=== PATIENT | male | born 1950 | race Caucasian/White ===

== ENCOUNTER 2016-08-27 08:20 | Observation (INO) | payer MEDICARE ==
[~2016-08-27] VITALS: Ht 185.4 cm; Wt 93.5 kg
[2016-08-27] VITALS (11 sets, daily range): BP systolic 90–115; BP diastolic 71–91; PULSE 58–130; RESP 16–19; TEMP 96.2–97.7; O2SAT 93–96
[~2016-08-27 08:20] MED LIST: CIAL5TAB PO; CO Q PO; COMMODE 3-IN-11 MIS; CPMMACHINE; GALA8TAB PO; HYDR-3580 PO; MAGN500T4 PO; MSM1500T PO; MULT1TAB84 PO; OMEG100037 PO; PRIL20CA9 PO; ROLLER WALKER1 MI1; VITATAB56 PO; XARE20TA PO; ZOVI400T PO
[2016-08-27] MEDS ORDERED: SODIUM CHLORIDE 0.9% FLUSH 10 ML FLUSH IVF PRN (08:45)
[2016-08-27] MEDS ORDERED: ASPIRIN 81 MG CHEW TAB CHEW ONE (08:45)
--- NOTE | 2016-08-27 08:53 | PD ---
HPI Chief Complaint: Cardiac Complaint Time Seen by Provider: 08:37 Travel History International Travel<30 days: No Contact w/Intl Traveler<30days: No Traveled to known affect area: No History of Present Illness HPI Patient is a 66-year-old male presents emergency Department with complaints of rapid heartbeat and shortness of breath. Patient states she has a history of heart attack some years ago followed by Dr. Monique but missed his appointment this winter secondary to a scheduling error. Patient does endorse a recent history of traveling from [place] back to [place]. States she's not had a stress test or cardiac catheterization some time. He states that he could hear his heartbeat in his neck and it was going somewhat fast. He went to call his logistics specialist and was unable to get through this morning, he then went to the local fire department and was told to follow-up with his primary care physician. Still not satisfied he came here by private vehicle for further evaluation. Of notes networking technician to the patient's vital signs on triage and had a heartbeat and axis of 200, patient states he was sweating and feeling very short of breath when he first got here by the time he was roomed in the examination room he states his symptoms are actually getting better. PFSH Past Medical History Heart Rhythm Problems: No Cancer: No Cardiac Catheterization: Yes Cardiovascular Problems: Yes (HX AK) High Cholesterol: No Congestive Heart Failure: No Coronary Artery Disease: Yes Diabetes: No Endocrine: No Gastrointestinal Disorders: Yes (gerd) Genitourinary: Yes Hepatitis: No Hiatal Hernia: No Heparin Induced Thrombocytopen: No Hypertension: No Immune Disorder: No Medical other: Yes (GOUT IN THE PAST) Musculoskeletal: Yes (arthritis, previous back injury, ) Neurologic: Yes (neuropathy to both feet) Psychiatric: No Reproductive: No Respiratory: No Myocardial Infarction: Yes (STENT PLACED 5 YEARS AGO) Thyroid Disease: No Influenza Vaccination: Yes Past Surgical History AICD: No Body Medical Devices: 1 STENT Cardiac Surgery: Yes (1 STENT) Coronary Artery Bypass Graft: No Coronary Stent: Yes (STENT AFTER ANGIOPLASTY 5 YEARS AGO) Joint Replacement: No Pacemaker: No Other Surgery: Yes (LEFT ELBOW REPAIR, RHINOPLASTY) Social History Alcohol Use: Yes (BEERS ON THE WEEKEND) Tobacco Use: No Substance Use: No Allergies-Medications (Allergen,Severity, Reaction): Coded Allergies: HMG-CoA Reductase Inhibitors (Unverified Allergy, Severe, Confusion, ) memory loss Reported Meds & Prescriptions Reported Meds & Active Scripts Active Reported Hydrea (Hydroxyurea) 500 Mg Cap 500 Mg PO DAILY Co Q-10 (Coenzyme Q10 (Ubidecarenone)) 400 Mg Cap 1 Tab-Cap PO DAILY Galantamine (Galantamine Hydrobromide) 8 Mg Tab 8 Mg PO DAILY Zovirax (Acyclovir) 400 Mg Tab 400 Mg PO DAILY Multivitamin Adults (Multiple Vitamins W/ Minerals) 1 Tab 1 Tab PO DAILY Msm (Methylsulfonylmethane) 1,500 Mg Tab 1,500 Mg PO DAILY Magnesium 500 Mg Tab 1,000 Mg PO DAILY Vitamin D-400 (Cholecalciferol) 400 Unit Tab 2,000 Units PO DAILY Review of Systems Except as stated in HPI: all other systems reviewed are Neg Physical Exam Narrative GENERAL: Well-developed well-nourished no apparent distress SKIN: Focused skin assessment warm/dry. HEAD: Atraumatic. Normocephalic. EYES: Pupils equal and round. No scleral icterus. No injection or drainage. ENT: No nasal bleeding or discharge. Mucous membranes pink and moist. NECK: Trachea midline. No JVD. CARDIOVASCULAR: Agonal rhythm with tachycardia. No murmur appreciated. 2+ bilateral equal pulses in all 4 extremity's. RESPIRATORY: No accessory muscle use. Clear to auscultation. Breath sounds equal bilaterally. GASTROINTESTINAL: Abdomen soft, non-tender, nondistended. Hepatic and splenic margins not palpable. MUSCULOSKELETAL: No obvious deformities. No clubbing. No cyanosis. No edema. NEUROLOGICAL: Awake and alert. No obvious cranial nerve deficits. Motor grossly within normal limits. Normal speech. PSYCHIATRIC: Appropriate mood and affect; insight and judgment normal. Data Data Last Documented VS Vital Signs Date Time Temp Pulse Resp B/P Pulse Ox O2 Delivery O2 Flow Rate FiO2 08/27/16 10:22 130 16 96/72 96 Nasal Cannula 2 08/27/16 08:25 97.7 Orders Electrocardiogram (08/27/16 08:37) Ckmb (Isoenzyme) Profile (08/27/16 08:37) Complete Blood Count With Diff (08/27/16 08:37) Comprehensive Metabolic Panel (08/27/16 08:37) D-Dimer (08/27/16 08:37) Magnesium (Mg) (08/27/16 08:37) Prothrombin Time / Inr (Pt) (08/27/16 08:37) Act Partial Throm Time (Ptt) (08/27/16 08:37) Troponin I (08/27/16 08:37) Chest, Single Ap (08/27/16 08:37) Ecg Monitoring (08/27/16 08:37) Iv Access Insert/Monitor (08/27/16 08:37) Oximetry (08/27/16 08:37) Oxygen Administration (08/27/16 08:37) Sodium Chloride 0.9% Flush (Ns Flush) (08/27/16 08:45) Aspirin Chew (Aspirin Chew) (08/27/16 08:45) Diltiazem Inj (Cardizem Inj) (08/27/16 09:00) Sodium Chlorid 0.9% 500 Ml Inj (Ns 500 M (08/27/16 09:15) Sodium Chlorid 0.9% 500 Ml Inj (Ns 500 M (08/27/16 10:15) Metoprolol Tartrate Inj (Lopressor Inj) (08/27/16 10:30) Electrocardiogram (08/27/16 ) Troponin I (08/27/16 10:40) Admit Order (Ed Use Only) (08/27/16 ) Labs Laboratory Tests Test 08/27/16 08:40 White Blood Count 10.9 TH/MM3 Red Blood Count 6.12 MIL/MM3 Hemoglobin 18.1 GM/DL Hematocrit 56.8 % Mean Corpuscular Volume 92.8 FL Mean Corpuscular Hemoglobin 29.6 PG Mean Corpuscular Hemoglobin 32.0 % Concent Red Cell Distribution Width 15.2 % Platelet Count 559 TH/MM3 Mean Platelet Volume 8.7 FL Neutrophils (%) (Auto) 72.8 % Lymphocytes (%) (Auto) 15.6 % Monocytes (%) (Auto) 8.0 % Eosinophils (%) (Auto) 2.0 % Basophils (%) (Auto) 1.6 % Neutrophils # (Auto) 7.9 TH/MM3 Lymphocytes # (Auto) 1.7 TH/MM3 Monocytes # (Auto) 0.9 TH/MM3 Eosinophils # (Auto) 0.2 TH/MM3 Basophils # (Auto) 0.2 TH/MM3 CBC Comment DIFF FINAL Differential Comment Prothrombin Time 11.6 SEC Prothromb Time International 1.0 RATIO Ratio Activated Partial 29.7 SEC Thromboplast Time D-Dimer Quantitative (PE/DVT) 0.34 MG/L FEU Sodium Level 146 MEQ/L Potassium Level 4.2 MEQ/L Chloride Level 110 MEQ/L Carbon Dioxide Level 30.6 MEQ/L Anion Gap 5 MEQ/L Blood Urea Nitrogen 23 MG/DL Creatinine 1.10 MG/DL Estimat Glomerular Filtration 67 ML/MIN Rate Random Glucose 115 MG/DL Calcium Level 8.9 MG/DL Magnesium Level 2.2 MG/DL Total Bilirubin 0.6 MG/DL Aspartate Amino Transf 31 U/L (AST/SGOT) Alanine Aminotransferase 48 U/L (ALT/SGPT) Alkaline Phosphatase 173 U/L Total Creatine Kinase 80 U/L Troponin I LESS THAN 0.02 NG/ML Total Protein 7.4 GM/DL Albumin 3.9 GM/DL MDM Medical Decision Making Medical Screen Exam Complete: Yes Emergency Medical Condition: Yes Interpretation(s) EKG shows 2-1 atrial flutter, overall rate of 120 bpm, normal axis and normal R- wave progression. No obvious ST segment changes. This an abnormal EKG. Repeat EKG shows atrial fibrillation at a rate of 80-90, normal axis normal R- wave progression, no obvious ST segment changes. This is an abnormal EKG. Differential Diagnosis New-onset atrial fibrillation, new onset atrial flutter, CHF, ACS, AK. Narrative Course Patient 66-year-old male presents emergency Department with atrial flutter 2-1 and a rate of 120s to 130s. Blood work does show some hemoconcentration versus possible polycythemia, he was given a total of a liter fluid which did not significantly correct his heart rate. He was also given diltiazem on arrival which did not alter his heart rate. Patient was then given a dose of metoprolol which slowed his heart rate significantly but the patient's rhythm changed from atrial flutter to atrial fibrillation. EKG and troponin are being repeated at this time. He is now asymptomatic, secondary complaint of some chest pain the left side of his chest. Recommended to him for observation status for chest pain and new onset atrial fibrillation and he is agreeable. Patient discussed with Dr. Ortiz who is agreeable. Diagnosis Primary Impression: Atrial fibrillation and flutter Additional Impression: Chest pain Admitting Information Admitting Physician Requests: Observation Condition: Stable Agustín Narayanan MD Aug 27, 2016 08:53
[2016-08-27 08:56] LABS: CHLORIDE 110 MEQ/L (98-107); POTASSIUM 4.2 MEQ/L (3.5-5.1); SODIUM (NA) 146 MEQ/L (136-145)
[2016-08-27 08:57] LABS: AUTOMATED NEUTROPHIL # 7.9 TH/MM3 (1.8-7.7); BASOPHIL # 0.2 TH/MM3 (0-0.2); BASOPHIL % 1.6 % (0.0-2.0); EOSINOPHIL # 0.2 TH/MM3 (0-0.4); HEMATOCRIT 56.8 % (39.0-51.0); LYMPH % 15.6 % (9.0-44.0); LYMPHOCYTE # 1.7 TH/MM3 (1.0-4.8); MEAN CELL VOLUME 92.8 FL (80.0-100.0); MEAN CORPUSCULAR HEMOGLOBIN 29.6 PG (27.0-34.0); NEUT % 72.8 % (16.0-70.0); PLATELET COUNT 559 TH/MM3 (150-450); RED BLOOD COUNT 6.12 MIL/MM3 (4.50-5.90); RED CELL DISTRIBUTION WIDTH 15.2 % (11.6-17.2); WHITE BLOOD COUNT 10.9 TH/MM3 (4.0-11.0)
[2016-08-27 08:59] LABS: HEMO FLAGS DIFF FINAL
[2016-08-27 09:00] LABS: ANION GAP 5 MEQ/L (5-15); BICARBONATE 30.6 MEQ/L (21.0-32.0); BLOOD UREA NITROGEN 23 MG/DL (7-18); MAGNESIUM 2.2 MG/DL (1.5-2.5)
[2016-08-27] MEDS ORDERED: DILTIAZEM HCL 25 MG/5 ML VIAL IV PUSH ONE (09:00)
[2016-08-27 09:03] LABS: ALT (GPT) 48 U/L (12-78); AST (GOT) 31 U/L (15-37); GLOMERULAR FILTRATION RATE 67 ML/MIN (>89)
[2016-08-27 09:04] LABS: APTT (PATIENT) 29.7 SEC (24.3-30.1); PROTHROMBIN TIME - PATIENT 11.6 SEC (9.8-11.6); TOTAL BILIRUBIN ADULT 0.6 MG/DL (0.2-1.0)
[2016-08-27 09:05] LABS: ALKALINE PHOSPHATASE 173 U/L (45-117)
[2016-08-27 09:06] LABS: CREATINE KINASE 80 U/L (39-308)
[2016-08-27] MEDS ORDERED: SODIUM CHLORID 0.9% 500 ML INJ 500 ML IV ONE ×2 (09:15→10:15)
[2016-08-27] MEDS ORDERED: HYDR500C PO (09:23)
[2016-08-27] MEDS ORDERED: COEN400C2 PO (09:23)
--- NOTE | 2016-08-27 09:30 | RADRPT ---
EXAM DATE/TIME: 08/27/2016 09:04 [facility] COMPARISON: No previous studies available for comparison. INDICATIONS : Chest Pain Increased heart rate MEDICAL HISTORY : None. SURGICAL HISTORY : None. ENCOUNTER: Initial ACUITY: 1 day PAIN SCORE: 5/10 LOCATION: Bilateral chest FINDINGS: Portable AP view of the chest demonstrates a normal-sized cardiac silhouette. No effusion, consolidat ion, or pneumothorax is visualized. The bones and soft tissues demonstrate no acute abnormality. Ther e is mild atelectasis at the lung bases and there is an old healed left clavicle fracture. CONCLUSION: No acute cardiopulmonary abnormality is identified. Garret Malin MD on August 27, 2016 at 9:27 Board Certified Radiologist. This report was verified electronically.
[2016-08-27] MEDS ORDERED: METOPROLOL TARTRATE 5 MG/5 ML VIAL IV PUSH ONE (10:30)
[2016-08-27] MEDS: METOPROLOL TARTRATE 50 MG TAB PO SCH ×2 (11:34→21:00)
[2016-08-27] MEDS ORDERED: GALA8TAB PO (13:23)
--- NOTE | 2016-08-27 13:47 | MH ---
cc: ALEXIA RANGEL M.D. DATE OF ADMISSION: 08/27/2016 ADMISSION DIAGNOSIS 1. Atrial fibrillation with rapid ventricular response that is new onset. 2. Coronary artery disease with prior PR and prior PTCA with stent in 2002. 3. Thrombocytosis. 4. History of DVT left lower leg. 5. Gastroesophageal reflux disease. 6. Osteoarthritis. 7. History of mild memory problems. 8. Lumbar degenerative disc disease. 9. Osteoarthritis. PERTINENT HISTORY This is a pleasant 66-year-old white male that earlier this morning noticed that he could hear his heart beat in his ear and it seemed to be very erratic and fast. He then would check his pulse and at times it would seen fast and at other times slow. He went to a fire station and they apparently did a rhythm strip on him and said his heart rate was around 120 and it was irregular; apparently mentioned that he was in atrial fibrillation and he was told to call his button breaker operator. He put in a call to the button breaker operator but could and get through promptly so he came to the emergency room where he was noted to be in atrial fibrillation. His heart rate was questionable in triage at 200, even though this was not fully documented on a rhythm strip. In the ED it was up to 130. He was given Cardizem and it did not really effect any reduction in his heart rate. He then was given metoprolol and his heart rate came down to a control rate. He states that he just briefly felt a little bit of a chest tight feeling and it was a 1/10 that lasted no more than 10-15 minutes. He had just some slight sweatiness and shortness of breath for a brief period when his heart rate was going faster. He does have a history of coronary artery disease and had a prior myocardial infarction. In 2002 he had a PTCA with stent and he has had no cardiac problems since then. PAST MEDICAL HISTORY 1. As mentioned history of coronary artery disease and prior PR. 2. History of thrombocytosis and sees a customer support analyst, Dr. Lindo, and is on hydroxyurea. 3. History of DVT in his left lower extremity. At one time he was on a blood thinner and then because of his thrombocytosis he was put on hydroxyurea and just aspirin by Dr. Lindo. He has been on that since then. 4. History of gastroesophageal reflux disease and only uses omeprazole as needed for heartburn. 5. History of some memory problem and takes galantamine. No history of stroke or seizure or TIA. He denies any hypertension. He states his cholesterol has been good. He had a problem with statin drugs in the past with memory loss. He has had no colon disease and negative colonoscopy on 10/03/2010. He had a normal EGD 10/03/2010. He has had no peptic ulcer disease, no cancer other than skin cancers. He has had no diabetes or thyroid problem. No liver or kidney disease. No asthma, TB or pneumonia. PAST SURGICAL HISTORY 1. A total of nine knee operations with the right and left knee being done. He has had an open knee surgery in the 1960s on both knees. He has had several arthroscopic procedures done. He had a left total knee replacement in December 2015. 2. Tonsillectomy and adenoidectomy. 3. Left ankle surgery twice after a fracture. 4. Surgery for a nasal fracture. 5. Right rotator cuff repair. 6. EGD and colonoscopy on 10/03/2010 that were normal. 7. PTCA with stent in 2002. ALLERGIES STATINS CAUSED MEMORY PROBLEMS. MEDICATIONS 1. Aspirin 81 mg daily. 2. Galantamine 16 mg a day. 3. Acyclovir (Zovirax) 400 mg daily. 4. Hydroxyurea 500 mg daily. 5. CoQ10 daily. 6. Multivitamin daily. 7. MSM 1500 mg daily. 8. Magnesium daily. 9. Vitamin D 2000 units a day. 10.Omeprazole 20 mg that he only uses as needed for heartburn and states he only uses it maybe every 3 months. FAMILY HISTORY His mother of some sort of vascular problem. She had peripheral artery disease and abdominal aortic aneurysm and at 74. His father is still living in his 90s. He has had cancer of larynx. SOCIAL HISTORY He has never smoked. He has 2-3 drinks of alcohol a week. He is . He is retired. 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 He has a master's degree. REVIEW OF SYSTEMS GENERAL: No fever, chills or sweats. HEENT: Without complaints. CARDIOVASCULAR: As mentioned. PULMONARY: No cough, hemoptysis, wheezing. GI: No nausea, vomiting, diarrhea, abdominal pain. : Without complaints. EXTREMITIES: Without leg pain or swelling. SKIN: Without rash. MUSCULOSKELETAL: Without current complaints. NEUROLOGIC: No headache, focal weakness, sensory loss or confusion. PHYSICAL EXAMINATION GENERAL: A pleasant white male in no acute stress. VITAL SIGNS: Heart rate 67, BP 112/75, temperature 96.5, pulse 67, O2 sat 96%. HEENT: Pupils are equal. Sclera non-icteric. Nose without lesion. Mouth without inflammation or lesion. NECK: Without bruit. No JVD. HEART: Rate is controlled. It is slightly irregular. LUNGS: Clear. ABDOMEN: Soft, nontender, no masses. EXTREMITIES: No edema. Pulses palpated in the feet. No calf tenderness. SKIN: Negative. NEUROLOGIC: Oriented x3. Cranial nerves, motor and sensory intact. LABORATORY White count 10.9, hemoglobin 18.1, platelet count 559,000. Troponins less than 0.2 on two different checks. CK was normal. Sodium 146, potassium 4.2, chloride 110, CO2 30.6, BUN 23, creatinine 1.1, GFR 67, random glucose 115. AST, ALT, alkaline phosphatase, total protein and albumin were normal. IMAGING Chest x-ray showed no acute process. ASSESSMENT As noted. PLAN Will put him on some metoprolol. Will order a 2-D echocardiogram. Will consult cardiology. Repeat troponins and EKGs have been ordered. Will try to contact Dr. Monique and see if he wants the patient to be started on anticoagulation. MD NAHOMI Arias/ARTHUR /1:16 PM /1:30 PM
[2016-08-27 14:48] LABS: CREATINE KINASE 61 U/L (39-308)
[2016-08-27] MEDS: APIXABAN 5 MG TABLET PO SCH (21:04)
--- NOTE | 2016-08-27 22:31 | MB ---
cc: TONI MONIQUE MD DATE OF CONSULTATION 08/27/2016 HISTORY A 66-year-old gentleman comes to the emergency department because of palpitations. When he awoke this morning he could his heart beat in his ears and noted that he had a rapid heart beats. He sat up, checked his pulse again and noted that his heart beat remained rapid and irregular. He came to the emergency department where he is found to have atrial fibrillation and a rapid response. He was initially given Cardizem without result. He was then given oral metoprolol and has had a significant reduction in his heart rate. He has been asymptomatic throughout the procedure with no symptoms of chest pain, shortness of breath, palpitations, lightheadedness or dizziness. No prior history of arrhythmias has been present. PAST MEDICAL HISTORY Significant for coronary artery disease with history of PTCA and stenting 5 years ago. He has actually been very active playing softball on a regular basis with no recurrence of chest pain. No dyspnea on exertion or change in his exercise tolerance has been present. Past medical history has otherwise been insignificant SOCIAL HISTORY Patient has a couple of beers on the weekends. He does not smoke or use recreational drugs. ALLERGIES STATIN THERAPY. MEDICATIONS At home include: 1. Hydroxyurea 500 mg daily. 2. Acyclovir 400 mg daily. 3. And supplements. PHYSICAL EXAMINATION GENERAL: On physical exam he is awake and alert. VITAL SIGNS: Blood pressure 100/70, pulse 60-70 and irregular. NECK: There is no neck vein distension. Carotids are normal. LUNGS: Clear. CARDIOVASCULAR: Exam reveals distant heart sounds. There is no significant murmur present. No gallop is noted. ABDOMEN: Soft. There is no tenderness, organomegaly. EXTREMITIES: Reveal no edema. ASSESSMENT The patient has had new onset of atrial fibrillation. Heart rate is well-controlled. I certainly agree with putting him on Eliquis as his [id number] score will be 2. I have ordered an echocardiogram for him. Once this is done, I think the patient is safe to be discharged. He has a follow-up appointment to see me in the office next week and we will plan treadmill exercise testing at that time to rule out occult ischemic. Toni Monique MD DLW/ULI /4:36 PM /10:24 PM
[2016-08-28] VITALS: BP 97/63; PULSE 56; RESP 16; TEMP 97.1; O2SAT 96
[2016-08-28 04:00] VITALS: BP_SYST 97; PULSE 56; RESP 16; TEMP 97.1; O2SAT 96
[2016-08-28 07:16] VITALS: PULSE 53
--- NOTE | 2016-08-28 07:19 | HHI.PR ---
Subjective Remarks No chest pain or shortness of breath. His nuclear monitoring technician shows he is back in a sinus rhythm. Objective Vitals Vital Signs Date Time Temp Pulse Resp B/P Pulse Ox O2 Delivery O2 Flow Rate FiO2 08/28/16 04:00 97.1 56 16 97/ 96 08/28/16 00:00 97.1 56 16 97/63 96 08/27/16 23:00 58 08/27/16 20:00 97.5 63 18 99/71 95 08/27/16 17:24 96.2 76 19 107/73 96 08/27/16 15:00 76 08/27/16 13:43 86 08/27/16 12:34 96.5 67 18 112/75 96 08/27/16 11:30 88 18 90/72 95 Room Air 08/27/16 10:22 130 16 96/72 96 Nasal Cannula 2 08/27/16 09:15 130 18 112/76 94 Nasal Cannula 2 08/27/16 08:35 18 93 Nasal Cannula 2 08/27/16 08:35 128 08/27/16 08:30 94 Nasal Cannula 2 08/27/16 08:25 97.7 128 18 115/91 93 08/27/16 08/27/16 08/28/16 15:00 23:00 07:00 Intake Total 1300 ml 680 ml 480 ml Balance 1300 ml 680 ml 480 ml Intake Oral 300 ml 680 ml 480 ml IV Total 1000 ml # Voids 4 3 # Bowel Movements 0 0 Result Diagram: 08/27/16 0840 08/27/16 0840 Other Results Laboratory Tests Test 08/27/16 08/27/16 08/27/16 08:40 12:00 13:55 White Blood Count 10.9 TH/MM3 Red Blood Count 6.12 MIL/MM3 Hemoglobin 18.1 GM/DL Hematocrit 56.8 % Mean Corpuscular Volume 92.8 FL Mean Corpuscular Hemoglobin 29.6 PG Mean Corpuscular Hemoglobin 32.0 % Concent Red Cell Distribution Width 15.2 % Platelet Count 559 TH/MM3 Mean Platelet Volume 8.7 FL Neutrophils (%) (Auto) 72.8 % Lymphocytes (%) (Auto) 15.6 % Monocytes (%) (Auto) 8.0 % Eosinophils (%) (Auto) 2.0 % Basophils (%) (Auto) 1.6 % Neutrophils # (Auto) 7.9 TH/MM3 Lymphocytes # (Auto) 1.7 TH/MM3 Monocytes # (Auto) 0.9 TH/MM3 Eosinophils # (Auto) 0.2 TH/MM3 Basophils # (Auto) 0.2 TH/MM3 CBC Comment DIFF FINAL Differential Comment Prothrombin Time 11.6 SEC Prothromb Time International 1.0 RATIO Ratio Activated Partial 29.7 SEC Thromboplast Time D-Dimer Quantitative (PE/DVT) 0.34 MG/L FEU Sodium Level 146 MEQ/L Potassium Level 4.2 MEQ/L Chloride Level 110 MEQ/L Carbon Dioxide Level 30.6 MEQ/L Anion Gap 5 MEQ/L Blood Urea Nitrogen 23 MG/DL Creatinine 1.10 MG/DL Estimat Glomerular Filtration 67 ML/MIN Rate Random Glucose 115 MG/DL Calcium Level 8.9 MG/DL Magnesium Level 2.2 MG/DL Total Bilirubin 0.6 MG/DL Aspartate Amino Transf 31 U/L (AST/SGOT) Alanine Aminotransferase 48 U/L (ALT/SGPT) Alkaline Phosphatase 173 U/L Total Creatine Kinase 80 U/L 61 U/L Troponin I LESS THAN 0.02 LESS THAN 0.02 LESS THAN 0.02 NG/ML NG/ML NG/ML Total Protein 7.4 GM/DL Albumin 3.9 GM/DL Imaging Last Impressions Chest X-Ray 08/27/16 0837 Signed Impressions: Service Date/Time: Saturday, August 27, 2016 09:04 - CONCLUSION: No acute cardiopulmonary abnormality is identified. Garret Malin MD Objective Remarks Exam: Pleasant white male in no distress. HEENT: Pupils equal, no scleral icterus, mouth negative Neck: No JVD Heart: RRR with no murmur Lungs: Clear Abdomen: Soft, nontender Extremities: No masses. Neuro: no focal signs A/P Assessment and Plan Assessment: --New onset atrial fibrillation with rapid ventricular response now converted back to sinus rhythm --Coronary artery disease with prior NH and prior PTCA with stent in 2002 --Chronic thrombocytosis on Hydroxyurea --History of DVT left lower extremity --GERD Plan: He will discharged home today after he has his 2D echo. He will be sent home on Metoprolol and Eliquis and will followup with cardiology (Dr Monique) who saw him last night. Dr Monique is going to do an outpatient stress test. He will also followup with Dr Rosario. Hitesh Ortiz MD Aug 28, 2016 07:19
[2016-08-28] MEDS ORDERED: METO-309 PO (07:25)
[2016-08-28] MEDS ORDERED: APIX5TAB PO (07:25)
--- NOTE | 2016-08-28 07:32 | PD.CARD.PN ---
Subjective Subjective Remarks denies any cv complaints Objective Vital Signs / I&O Vital Signs Date Time Temp Pulse Resp B/P Pulse Ox O2 Delivery O2 Flow Rate FiO2 08/28/16 04:00 97.1 56 16 97/ 96 08/28/16 00:00 97.1 56 16 97/63 96 08/27/16 23:00 58 08/27/16 20:00 97.5 63 18 99/71 95 08/27/16 17:24 96.2 76 19 107/73 96 08/27/16 15:00 76 08/27/16 13:43 86 08/27/16 12:34 96.5 67 18 112/75 96 08/27/16 11:30 88 18 90/72 95 Room Air 08/27/16 10:22 130 16 96/72 96 Nasal Cannula 2 08/27/16 09:15 130 18 112/76 94 Nasal Cannula 2 08/27/16 08:35 18 93 Nasal Cannula 2 08/27/16 08:35 128 08/27/16 08:30 94 Nasal Cannula 2 08/27/16 08:25 97.7 128 18 115/91 93 I/O 08/27/16 08/27/16 08/27/16 08/28/16 08/28/16 08/28/16 07:00 15:00 23:00 07:00 15:00 23:00 Intake Total 1300 ml 680 ml 480 ml Balance 1300 ml 680 ml 480 ml Intake Oral 300 ml 680 ml 480 ml IV Total 1000 ml # Voids 4 3 # Bowel Movements 0 0 Physical Exam GENERAL: Well-nourished, well-developed patient in no apparent distress. NECK: No JVD. No carotid bruit. CARDIOVASCULAR: IR IR. S1/S2 no murmur, rub, or gallop. RESPIRATORY: No accessory muscle use. Clear to auscultation. Breath sounds equal bilaterally. GASTROINTESTINAL: Abdomen soft, non-tender, nondistended. MUSCULOSKELETAL: Extremities without clubbing, cyanosis, or edema. Laboratory Laboratory Tests Test 08/27/16 08/27/16 08/27/16 08:40 12:00 13:55 White Blood Count 10.9 TH/MM3 Red Blood Count 6.12 MIL/MM3 Hemoglobin 18.1 GM/DL Hematocrit 56.8 % Mean Corpuscular Volume 92.8 FL Mean Corpuscular Hemoglobin 29.6 PG Mean Corpuscular Hemoglobin 32.0 % Concent Red Cell Distribution Width 15.2 % Platelet Count 559 TH/MM3 Mean Platelet Volume 8.7 FL Neutrophils (%) (Auto) 72.8 % Lymphocytes (%) (Auto) 15.6 % Monocytes (%) (Auto) 8.0 % Eosinophils (%) (Auto) 2.0 % Basophils (%) (Auto) 1.6 % Neutrophils # (Auto) 7.9 TH/MM3 Lymphocytes # (Auto) 1.7 TH/MM3 Monocytes # (Auto) 0.9 TH/MM3 Eosinophils # (Auto) 0.2 TH/MM3 Basophils # (Auto) 0.2 TH/MM3 CBC Comment DIFF FINAL Differential Comment Prothrombin Time 11.6 SEC Prothromb Time International 1.0 RATIO Ratio Activated Partial 29.7 SEC Thromboplast Time D-Dimer Quantitative (PE/DVT) 0.34 MG/L FEU Sodium Level 146 MEQ/L Potassium Level 4.2 MEQ/L Chloride Level 110 MEQ/L Carbon Dioxide Level 30.6 MEQ/L Anion Gap 5 MEQ/L Blood Urea Nitrogen 23 MG/DL Creatinine 1.10 MG/DL Estimat Glomerular Filtration 67 ML/MIN Rate Random Glucose 115 MG/DL Calcium Level 8.9 MG/DL Magnesium Level 2.2 MG/DL Total Bilirubin 0.6 MG/DL Aspartate Amino Transf 31 U/L (AST/SGOT) Alanine Aminotransferase 48 U/L (ALT/SGPT) Alkaline Phosphatase 173 U/L Total Creatine Kinase 80 U/L 61 U/L Troponin I LESS THAN 0.02 LESS THAN 0.02 LESS THAN 0.02 NG/ML NG/ML NG/ML Total Protein 7.4 GM/DL Albumin 3.9 GM/DL Assessment and Plan Problem List: (1) Atrial fibrillation with RVR Assessment and Plan rate controlled on anticoagulation. Await 2D echo and likely discharge home. F/ U in our office 09/05/16 for Santiago Molina Aug 28, 2016 07:32
--- NOTE | 2016-08-28 07:36 | EKG ---
Date Performed: 08/27/2016 Time Performed: 10:47:07 PTAGE: 66 years EKG: ATRIAL FIBRILLATION ABNORMAL RHYTHM ECG INTERPRETATION BASED ON A DEFAULT AGE OF 40 YEARS PREVIOUS TRACING : 12/27/2015 09.07 DOCTOR: Thiago Gunn Interpretating Date/Time 08/28/2016 07:35:37
--- NOTE | 2016-08-28 07:40 | EKG ---
Date Performed: 08/27/2016 Time Performed: 08:33:25 PTAGE: 66 years EKG: ATRIAL FLUTTER/TACHYCARDIA WITH RAPID VENTRICULAR RESPONSE MODERATE ST DEPRESSION ABNORMAL ECG INTERPRETATION BASED ON A DEFAULT AGE OF 39 YEARS NO PREVIOUS TRACING DOCTOR: Thiago uGnn Interpretating Date/Time 08/28/2016 07:39:56
[2016-08-28 08:00] VITALS: BP 116/65; PULSE 60; RESP 21; TEMP 97.8; O2SAT 96
[2016-08-28] MEDS: APIXABAN 5 MG TABLET PO SCH (08:23)
[2016-08-28] MEDS: METOPROLOL TARTRATE 50 MG TAB PO SCH (08:29)
[2016-08-28] MEDS ORDERED: CHOLECALCIFEROL (VIT D3) 400 UNIT TAB PO SCH (09:00)
[2016-08-28] MEDS ORDERED: ACYCLOVIR 200 MG CAP PO SCH (09:00)
[2016-08-28] MEDS ORDERED: METHYLSULFONYLMETHANE 1500 MG PO SCH (09:00)
[2016-08-28] MEDS ORDERED: MAGNESIUM OXIDE 400 MG TAB PO SCH (09:00)
[2016-08-28] MEDS ORDERED: MULTIVITAMINS/MINERALS THERAPEUTIC TAB PO SCH (09:00)
[2016-08-28] MEDS ORDERED: HYDROXYUREA 500 MG CAP PO SCH (09:00)
--- NOTE | 2016-08-28 11:22 | ECHRPT ---
Indication: Persistent atrial fibrillation CONCLUSIONS The left ventricular systolic function is low normal with an estimated ejection fraction in the rang e of 50- 55%. Upper normal wall thickness. No definite segmental wall motion abnormalities. There is trace tricuspid valve regurgitation. The estimated pulmonary arterial pressure is 21 mmHg. BP: 115 / 91 HR: Rhythm: Sinus Technical Quality:Fair FINDINGS LEFT VENTRICLE The left ventricular systolic function is low normal with an estimated ejection fraction in the rang e of 50- 55%. Upper normal wall thickness. No definite segmental wall motion abnormalities. RIGHT VENTRICLE Normal right ventricular size and systolic function. LEFT ATRIUM The left atrial size is normal. RIGHT ATRIUM The right atrial size is normal. ATRIAL SEPTUM Normal atrial septal thickness without atrial level shunting by limited color doppler interrogation. AORTA The aortic root and proximal ascending aorta are normal in size on limited imaging. MITRAL VALVE Structurally normal mitral valve. No mitral valve stenosis or regurgitation. AORTIC VALVE Trileaflet aortic valve. No aortic valve stenosis or regurgitation. TRICUSPID VALVE There is trace tricuspid valve regurgitation. The estimated pulmonary arterial pressure is 21 mmHg. PULMONARY VALVE The pulmonary valve is not well visualized. VESSELS The inferior vena cava is normal in size. PERICARDIUM No pericardial effusion. Arias Crump MD (Electronically Signed) Final Date:28 August 2016 11:22
--- NOTE | 2016-08-28 17:08 | EKG ---
Date Performed: 08/27/2016 Time Performed: 14:03:15 PTAGE: 66 years EKG: ATRIAL FIBRILLATION ABNORMAL RHYTHM ECG PREVIOUS TRACING : 08/27/2016 10.47 Compared to prior tracing no significant change DOCTOR: Vamshi Giron Interpretating Date/Time 08/28/2016 17:08:20
== END 2016-08-28 08:53 | disposition home or self-care (01) ==
LOC: PHED 08:20 → PHEDA 10:52 → PH3B 12:19
PROVIDERS: ADMIT Family Medicine; ATTEND Family Medicine
DX: I48.91 Unspecified atrial fibrillation (principal); R06.02 Shortness of breath; R07.9 Chest pain, unspecified; R00.0 Tachycardia, unspecified; R00.2 Palpitations; I48.92 Unspecified atrial flutter; R94.31 Abnormal electrocardiogram [ECG] [EKG]; I25.10 Atherosclerotic heart disease of native coronary artery without angina pectoris; I25.2 Old myocardial infarction; D75.89 Other specified diseases of blood and blood-forming organs; K21.9 Gastro-esophageal reflux disease without esophagitis; G62.9 Polyneuropathy, unspecified; M51.36 Other intervertebral disc degeneration, lumbar region; M19.90 Unspecified osteoarthritis, unspecified site; Z95.5 Presence of coronary angioplasty implant and graft; Z79.899 Other long term (current) drug therapy; Z79.82 Long term (current) use of aspirin; Z86.718 Personal history of other venous thrombosis and embolism; Z96.652 Presence of left artificial knee joint
CPT/HCPCS: 71010; 80053; 82550; 83735; 84484; 85025; 85379; 85610; 85730; 93005; 93306; 96361; 96374; 96375; 99285; G0378; J7040